=== PATIENT | male | born 1940 | race Caucasian/White ===

== ENCOUNTER 2021-10-13 10:01 | Outpatient (CLI) | payer MEDICARE, BC | END 2021-10-13 10:02 | disposition home or self-care (01) | LOC: CSHWCC 10:01 | PROVIDERS: ATTEND Nurse Practitioner Family | DX: T81.89XD Other complications of procedures, not elsewhere classified, subsequent encounter (principal) | CPT/HCPCS: 87070; 87205; 97605 ==

== ENCOUNTER 2021-10-16 13:43 | Outpatient (CLI) | payer MEDICARE, BC | END 2021-10-16 13:44 | disposition home or self-care (01) | LOC: CSHWCC 13:43 | PROVIDERS: ATTEND Nurse Practitioner Family | DX: T81.89XD Other complications of procedures, not elsewhere classified, subsequent encounter (principal) | CPT/HCPCS: 97605 ==

== ENCOUNTER 2021-10-18 09:50 | Outpatient (CLI) | payer MEDICARE, BC | END 2021-10-18 09:51 | disposition home or self-care (01) | LOC: CSHWCC 09:50 | PROVIDERS: ATTEND Nurse Practitioner Family | DX: T81.89XD Other complications of procedures, not elsewhere classified, subsequent encounter (principal) | CPT/HCPCS: 97605 ==

== ENCOUNTER 2021-10-20 09:38 | Outpatient (CLI) | payer MEDICARE, BC | END 2021-10-20 09:39 | disposition home or self-care (01) | LOC: CSHWCC 09:38 | PROVIDERS: ATTEND Nurse Practitioner Family | DX: T81.89XD Other complications of procedures, not elsewhere classified, subsequent encounter (principal) ==

== ENCOUNTER 2021-10-23 10:51 | Outpatient (CLI) | payer MEDICARE, BC | END 2021-10-23 10:52 | disposition home or self-care (01) | LOC: CSHWCC 10:51 | PROVIDERS: ATTEND Nurse Practitioner Family | DX: T81.89XD Other complications of procedures, not elsewhere classified, subsequent encounter (principal) | CPT/HCPCS: 97605 ==

== ENCOUNTER 2021-10-27 08:10 | Outpatient (CLI) | payer MEDICARE, BC | END 2021-10-27 08:11 | disposition home or self-care (01) | LOC: CSHWCC 08:10 | PROVIDERS: ATTEND Nurse Practitioner Family | DX: T81.89XD Other complications of procedures, not elsewhere classified, subsequent encounter (principal) | CPT/HCPCS: 97605 ==

== ENCOUNTER 2021-10-30 13:31 | Outpatient (CLI) | payer MEDICARE, BC | END 2021-10-30 13:32 | disposition home or self-care (01) | LOC: CSHWCC 13:31 | PROVIDERS: ATTEND Nurse Practitioner Family | DX: T81.89XD Other complications of procedures, not elsewhere classified, subsequent encounter (principal) | CPT/HCPCS: 97605 ==

== ENCOUNTER 2021-11-08 10:08 | Outpatient (CLI) | payer MEDICARE, BC | END 2021-11-08 10:09 | disposition home or self-care (01) | LOC: CSHWCC 10:08 | PROVIDERS: ATTEND Nurse Practitioner Family | DX: T81.89XD Other complications of procedures, not elsewhere classified, subsequent encounter (principal) | CPT/HCPCS: 97605 ==

== ENCOUNTER 2021-11-10 09:53 | Outpatient (CLI) | payer MEDICARE, BC | END 2021-11-10 09:54 | disposition home or self-care (01) | LOC: CSHWCC 09:53 | PROVIDERS: ATTEND Nurse Practitioner Family | DX: T81.89XD Other complications of procedures, not elsewhere classified, subsequent encounter (principal) | CPT/HCPCS: 97605; 99213; G0463 ==

== ENCOUNTER 2021-11-15 14:07 | Outpatient (CLI) | payer MEDICARE, BC | END 2021-11-15 14:08 | disposition home or self-care (01) | LOC: CSHWCC 14:07 | PROVIDERS: ATTEND Nurse Practitioner Family | DX: T81.89XD Other complications of procedures, not elsewhere classified, subsequent encounter (principal) | CPT/HCPCS: 97605 ==

== ENCOUNTER 2021-11-17 08:04 | Outpatient (CLI) | payer MEDICARE, BC | END 2021-11-17 08:05 | disposition home or self-care (01) | LOC: CSHWCC 08:04 | PROVIDERS: ATTEND Nurse Practitioner Family | DX: T81.89XD Other complications of procedures, not elsewhere classified, subsequent encounter (principal) | CPT/HCPCS: 97139; 97605; G0463; 99213 ==

== ENCOUNTER 2021-11-20 14:23 | Outpatient (CLI) | payer MEDICARE, BC | END 2021-11-20 14:24 | disposition home or self-care (01) | LOC: CSHWCC 14:23 | PROVIDERS: ATTEND Nurse Practitioner Family | DX: T81.89XD Other complications of procedures, not elsewhere classified, subsequent encounter (principal) | CPT/HCPCS: 97605 ==

== ENCOUNTER 2021-11-24 09:06 | Outpatient (CLI) | payer MEDICARE, BC | END 2021-11-24 09:07 | disposition home or self-care (01) | LOC: CSHWCC 09:06 | PROVIDERS: ATTEND Nurse Practitioner Family | DX: T81.89XD Other complications of procedures, not elsewhere classified, subsequent encounter (principal) | CPT/HCPCS: 97605 ==

== ENCOUNTER 2021-11-27 14:27 | Outpatient (CLI) | payer MEDICARE, BC | END 2021-11-27 14:28 | disposition home or self-care (01) | LOC: CSHWCC 14:27 | PROVIDERS: ATTEND Nurse Practitioner Family | DX: T81.89XD Other complications of procedures, not elsewhere classified, subsequent encounter (principal) | CPT/HCPCS: 97605 ==

== ENCOUNTER 2021-11-29 08:11 | Outpatient (CLI) | payer MEDICARE, BC | END 2021-11-29 08:12 | disposition home or self-care (01) | LOC: CSHWCC 08:11 | PROVIDERS: ATTEND Nurse Practitioner Family | DX: T81.89XD Other complications of procedures, not elsewhere classified, subsequent encounter (principal) ==

== ENCOUNTER 2021-12-01 08:02 | Outpatient (CLI) | payer MEDICARE, BC | END 2021-12-01 08:03 | disposition home or self-care (01) | LOC: CSHWCC 08:02 | PROVIDERS: ATTEND Nurse Practitioner Family | DX: T81.89XD Other complications of procedures, not elsewhere classified, subsequent encounter (principal) ==

== ENCOUNTER 2021-12-04 08:13 | Outpatient (CLI) | payer MEDICARE, BC | END 2021-12-04 08:14 | disposition home or self-care (01) | LOC: CSHWCC 08:13 | PROVIDERS: ATTEND Nurse Practitioner Family | DX: T81.89XD Other complications of procedures, not elsewhere classified, subsequent encounter (principal) ==

== ENCOUNTER 2021-12-06 12:06 | Outpatient (CLI) | payer MEDICARE, BC | END 2021-12-06 12:07 | disposition home or self-care (01) | LOC: CSHWCC 12:06 | PROVIDERS: ATTEND Nurse Practitioner Family | DX: T81.89XD Other complications of procedures, not elsewhere classified, subsequent encounter (principal) | CPT/HCPCS: 97605; 99212; G0463 ==

== ENCOUNTER 2021-12-15 09:28 | Outpatient (CLI) | payer MEDICARE, BC | END 2021-12-15 09:29 | disposition home or self-care (01) | LOC: CSHWCC 09:28 | PROVIDERS: ATTEND Nurse Practitioner Family | DX: T81.89XD Other complications of procedures, not elsewhere classified, subsequent encounter (principal); S71.002D Unspecified open wound, left hip, subsequent encounter ==

== ENCOUNTER 2021-12-18 15:55 | Outpatient (CLI) | payer MEDICARE, BC | END 2021-12-18 15:56 | disposition home or self-care (01) | LOC: CSHWCC 15:55 | PROVIDERS: ATTEND Nurse Practitioner Family | DX: T84.498D Other mechanical complication of other internal orthopedic devices, implants and grafts, subsequent encounter (principal) ==

== ENCOUNTER 2021-12-25 15:12 | Outpatient (CLI) | payer MEDICARE, BC | END 2021-12-25 15:13 | disposition home or self-care (01) | LOC: CSHWCC 15:12 | PROVIDERS: ATTEND Nurse Practitioner Family | DX: T81.89XD Other complications of procedures, not elsewhere classified, subsequent encounter (principal) ==

== ENCOUNTER 2022-01-03 08:07 | Outpatient (CLI) | payer MEDICARE, BC | END 2022-01-03 08:08 | disposition home or self-care (01) | LOC: CSHWCC 08:07 | PROVIDERS: ATTEND Nurse Practitioner Family | DX: T81.89XD Other complications of procedures, not elsewhere classified, subsequent encounter (principal) ==

== ENCOUNTER 2022-01-10 09:23 | Outpatient (CLI) | payer MEDICARE, BC | END 2022-01-10 09:24 | disposition home or self-care (01) | LOC: CSHWCC 09:23 | PROVIDERS: ATTEND Nurse Practitioner Family | DX: T81.89XD Other complications of procedures, not elsewhere classified, subsequent encounter (principal) ==

== ENCOUNTER 2022-01-17 10:43 | Outpatient (CLI) | payer MEDICARE, BC | END 2022-01-17 10:44 | disposition home or self-care (01) | LOC: CSHWCC 10:43 | PROVIDERS: ATTEND Nurse Practitioner Family | DX: T81.89XD Other complications of procedures, not elsewhere classified, subsequent encounter (principal) ==

== ENCOUNTER 2022-01-23 09:43 | Outpatient (CLI) | payer MEDICARE, BC | END 2022-01-23 09:44 | disposition home or self-care (01) | LOC: CSHWCC 09:43 | PROVIDERS: ATTEND Nurse Practitioner Family | DX: T81.89XD Other complications of procedures, not elsewhere classified, subsequent encounter (principal) | CPT/HCPCS: 87070; 87205 ==

== ENCOUNTER 2022-02-14 13:15 | Outpatient (CLI) | payer MEDICARE, BC | END 2022-02-14 13:16 | disposition home or self-care (01) | LOC: CSHWCC 13:15 | PROVIDERS: ATTEND Preventive Medicine Undersea and Hyperbaric Medicine | DX: T81.89XD Other complications of procedures, not elsewhere classified, subsequent encounter (principal) | CPT/HCPCS: 97139; G0463; 99213 ==

== ENCOUNTER 2022-03-06 08:46 | Outpatient (CLI) | payer MEDICARE, BC | END 2022-03-06 08:47 | disposition home or self-care (01) | LOC: CSHWCC 08:46 | PROVIDERS: ATTEND Preventive Medicine Undersea and Hyperbaric Medicine | DX: T81.89XD Other complications of procedures, not elsewhere classified, subsequent encounter (principal) | CPT/HCPCS: 97139; G0463; 99212 ==

== ENCOUNTER 2022-09-11 08:52 | Outpatient (CLI) | payer MEDICARE, BC | END 2022-09-11 08:53 | disposition home or self-care (01) | LOC: CSHRAD 08:52 | PROVIDERS: ATTEND Nurse Practitioner Adult Health | DX: Z01.818 Encounter for other preprocedural examination (principal) | CPT/HCPCS: 71046 ==